=== PATIENT | female | born 1990 | race Caucasian/White ===

== ENCOUNTER 2021-01-31 19:30 | Inpatient (IN) | payer OTHER ==
[2021-01-31 21:42] LABS: BASO % 0.2 % (0-2.0); EOS % 0.8 % (0-4.5); HEMATOCRIT 36.2 % (32.4-45.2); HEMOGLOBIN 12.7 GM/dL (10.7-15.3); LYMPH % 14.8 % (8-40); MCH 31.9 pg (25.7-33.7); MCHC 35.1 g/dl (32.0-36.0); MEAN CELL VOLUME 90.9 fl (80-96); MONO % 6.7 % (3.8-10.2); NEUT % 77.5 % (42.8-82.8); PLATELET COUNT 199 10^3/uL (134-434); RBC 3.98 M/mm3 (3.60-5.2); RDW 13.9 % (11.6-15.6); WHITE BLOOD COUNT 15.6 K/mm3 (4.0-10.0)
[2021-01-31 21:50] VITALS: BMI 29.9
[2021-01-31 21:50] LABS: INR 0.96 (0.83-1.09); PROTHROMBIN TIME (PATIENT) 11.6 SEC (9.7-13.0)
[2021-01-31 21:53] LABS: ACTIVATED PTT 27.1 SECONDS (25.2-36.5)
[2021-01-31] MEDS ORDERED: DEXTROSE 5%-LACTATED RINGERS 1,000 ML IV SCH ×2 (22:00→22:15)
[2021-01-31] MEDS ORDERED: DINOPROSTONE 10 MG VAGINAL SUPPOSITORY VG ONE (22:01)
[2021-01-31] MEDS ORDERED: BUTORPHANOL TARTRATE 1 MG/ML VIAL IVPB ONE (22:01)
[2021-01-31] MEDS ORDERED: PROMETHAZINE HCL 25 MG/1 ML VIAL IVPUSH ONE (22:01)
[2021-01-31 22:05] LABS: CALCIUM 8.8 mg/dL (8.5-10.1)
[2021-01-31 22:06] LABS: BLOOD UREA NITROGEN 7.2 mg/dL (7-18)
[2021-01-31 22:09] LABS: CREATININE 0.6 mg/dL (0.55-1.3)
[2021-01-31] MEDS ORDERED: OXYTOCIN 30 UNITS in 0.9% NS 30 UNIT/500 ML INFUS.BAG IVPB SCH (22:15)
[2021-01-31] MEDS ORDERED: OXYTOCIN 30 UNITS in 0.9% NS 30 UNIT/500 ML INFUS.BAG IVPB ONE (22:25)
[2021-01-31 23:03] LABS: HIV INTERPRETATION NEGATIVE (NEGATIVE)
[2021-01-31] MEDS ORDERED: PROMETHAZINE HCL 25 MG/1 ML VIAL ONE (23:41)
[2021-01-31] MEDS ORDERED: BUTORPHANOL TARTRATE 2 MG/ML VIAL ONE (23:41)
[2021-02-01] MEDS ORDERED: PCA PUMP NR ONE ×2 (12:13→17:35)
[2021-02-01] MEDS ORDERED: FENTANYL/BUPIVACAINE/NS/PF - PCEA - 50 ML DISP.SYRIN EP ONE ×2 (12:13→17:36)
[2021-02-01] MEDS: FENTANYL/BUPIVACAINE/NS/PF - PCEA - 50 ML DISP.SYRIN EP SCH ×2 (13:00→17:45)
[2021-02-01] MEDS ORDERED: NALOXONE HCL 0.4 MG/ML VIAL IVPUSH PRN (13:51)
[2021-02-01] MEDS ORDERED: OXYTOCIN 20 UNITS in 0.9% NS 20 UNIT/1,000 ML INFUS.BAG IV ONE (20:54)
[2021-02-01] MEDS ORDERED: LIDOCAINE HCL 1% PRESERVATIVE FREE - 30ML VIAL ONE (20:55)
[2021-02-01] MEDS: OXYTOCIN 20 UNITS in 0.9% NS 20 UNIT/1,000 ML INFUS.BAG IV SCH (22:50)
[2021-02-02] MEDS ORDERED: OXYTOCIN 20 UNITS in 0.9% NS 20 UNIT/1,000 ML INFUS.BAG IV ONE (00:10)
[2021-02-02] MEDS ORDERED: PCA PUMP NR ONE (00:10)
[2021-02-02] MEDS ORDERED: BENZOCAINE 20% 57 GM BOTTLE TP PRN (00:21)
[2021-02-02] MEDS ORDERED: BISACODYL 10 MG SUPP.RECT RC PRN (00:21)
[2021-02-02] MEDS ORDERED: METHYLERGONOVINE MALEATE 0.2 MG/1 ML AMP IM PRN (00:21)
[2021-02-02] MEDS ORDERED: BENZOCAINE 28 GM HEMORRHOIDAL OINTMENT TP PRN (00:21)
[2021-02-02] MEDS ORDERED: WITCH HAZEL 50% (TUCKS) 40 PAD/JAR PAD TP PRN (00:21)
[2021-02-02] MEDS: OXYTOCIN 20 UNITS in 0.9% NS 20 UNIT/1,000 ML INFUS.BAG IV SCH (00:30)
[2021-02-02 04:43] LABS: CORD BASE EXCESS -5.9 mmol/L (0-2); CORD HCO3 21.2 mmHg (20-29); CORD PCO2 46.6 mmHg (30-78); CORD pH 7.275 (7.14-7.44)
[2021-02-02] MEDS: PRENATAL VITAMINS W/ FOLIC ACID TABLET (FP) PO SCH (09:07)
[2021-02-02] MEDS: ACETAMINOPHEN 325 MG TABLET (FP) PO PRN ×2 (09:08→20:28)
[2021-02-02] MEDS: IBUPROFEN 600 MG TABLET (FP) PO PRN ×2 (09:09→20:33)
[2021-02-03] MEDS: IBUPROFEN 600 MG TABLET (FP) PO PRN (08:37)
[2021-02-03] MEDS: ACETAMINOPHEN 325 MG TABLET (FP) PO PRN (08:38)
[2021-02-03 09:22] LABS: BASO % 0.3 % (0-2.0); EOS % 1.3 % (0-4.5); HEMATOCRIT 29.6 % (32.4-45.2); HEMOGLOBIN 10.3 GM/dL (10.7-15.3); LYMPH % 16.6 % (8-40); MCH 32.4 pg (25.7-33.7); MCHC 34.7 g/dl (32.0-36.0); MEAN CELL VOLUME 93.4 fl (80-96); MEAN PLT VOLUME 9.5 fl (7.5-11.1); MONO % 3.7 % (3.8-10.2); NEUT % 78.1 % (42.8-82.8); PLATELET COUNT 175 10^3/uL (134-434); RBC 3.17 M/mm3 (3.60-5.2); RDW 14.3 % (11.6-15.6); WHITE BLOOD COUNT 15.7 K/mm3 (4.0-10.0)
[2021-02-03] MEDS: PRENATAL VITAMINS W/ FOLIC ACID TABLET (FP) PO SCH (09:25)
[2021-02-03 10:37] VITALS: BP 99/66; PULSE 79; TEMP 98.3
[2021-02-03] MEDS ORDERED: SENNOSIDES/DOCUSATE COMBO (SENNA PLUS) TABLET (UD) PO PRN (22:00)
== END 2021-02-03 14:45 | disposition home or self-care (01) | DRG 807 ==
LOC: JLDR 19:30 → J3W 02-02 02:36
PROVIDERS: ADMIT Obstetrics & Gynecology; ATTEND Obstetrics & Gynecology
PROC: 10E0XZZ Delivery of Products of Conception, External Approach (ICD-10-PCS; principal; 2021-02-01)
PROC: 0KQM0ZZ Repair Perineum Muscle, Open Approach (ICD-10-PCS; 2021-02-01)
PROC: 0W8NXZZ Division of Female Perineum, External Approach (ICD-10-PCS; 2021-02-01)
DX: O70.1 Second degree perineal laceration during delivery (principal); Z37.0 Single live birth; Z3A.38 38 weeks gestation of pregnancy
CPT/HCPCS: 36415; 36600; 59409; 80048; 82803; 85025; 85610; 85730; 86780; 86850; 86900; 86901; 87389; 88307-TC; C9803; U0003; U0005

== ENCOUNTER 2023-07-24 07:00 | Inpatient (IN) | payer OTHER ==
[2023-07-24] MEDS ORDERED: ELECTROLYTE-148 SOLN 1,000 ML IV SCH (08:00)
[2023-07-24 08:29] VITALS: BMI 33.6
[2023-07-24 08:29] LABS: INR 1.03 (0.83-1.09)
[2023-07-24 08:34] LABS: ACTIVATED PTT 26.6 SECONDS (25.2-36.5)
[2023-07-24 08:39] LABS: BASO % 0.3 % (0-2.0); EOS % 1.1 % (0-4.5); HEMATOCRIT 37.8 % (32.4-45.2); HEMOGLOBIN 12.8 GM/dL (10.7-15.3); LYMPH % 14.8 % (8-40); MCH 30.8 pg (25.7-33.7); MCHC 33.8 g/dl (32.0-36.0); MEAN CELL VOLUME 91.1 fl (80-96); MEAN PLT VOLUME 9.1 fl (7.5-11.1); MONO % 6.7 % (3.8-10.2); NEUT % 77.1 % (42.8-82.8); PLATELET COUNT 196 10^3/uL (134-434); RBC 4.15 M/mm3 (3.60-5.2); RDW 14.7 % (11.6-15.6)
[2023-07-24 08:48] LABS: POTASSIUM 4.3 mmol/L (3.5-5.1)
[2023-07-24 08:50] LABS: CALCIUM 9.2 mg/dL (8.5-10.1)
[2023-07-24 08:51] LABS: BLOOD UREA NITROGEN 10.3 mg/dL (7-18)
[2023-07-24 08:54] LABS: CREATININE 0.5 mg/dL (0.55-1.3)
[2023-07-24] MEDS ORDERED: OXYTOCIN 30 UNITS in 0.9% NS 30 UNIT/500 ML INFUS.BAG IVPB ONE (08:55)
[2023-07-24] MEDS ORDERED: PROMETHAZINE HCL 25 MG/1 ML VIAL IVPB ONE (09:12)
[2023-07-24] MEDS ORDERED: BUTORPHANOL TARTRATE 2 MG/ML VIAL IVPB ONE (09:12)
[2023-07-24] MEDS ORDERED: OXYTOCIN 30 UNITS in 0.9% NS 30 UNIT/500 ML INFUS.BAG IVPB SCH (09:30)
[2023-07-24] MEDS ORDERED: PROMETHAZINE HCL 25 MG/1 ML VIAL ONE (11:47)
[2023-07-24] MEDS ORDERED: BUTORPHANOL TARTRATE 2 MG/ML VIAL ONE (11:47)
[2023-07-24] MEDS ORDERED: FENTANYL/BUPIVACAINE/NS/PF - PCEA - 50 ML DISP.SYRIN EP ONE ×2 (14:42→17:06)
[2023-07-24] MEDS ORDERED: BUPIVACAINE HCL/PF 0.25% (2.5MG/ML) 10 ML VIAL ONE (14:45)
[2023-07-24] MEDS ORDERED: LIDO 2%/EPI 1:200000 PRESRVFRE (20 ML SDVIAL) ONE ×2 (14:45)
[2023-07-24] MEDS: ELECTROLYTE-148 SOLN 1,000 ML IV SCH ×2 (14:47→17:18)
[2023-07-24] MEDS: FENTANYL/BUPIVACAINE/NS/PF - PCEA - 50 ML DISP.SYRIN EP SCH ×2 (14:59→18:20)
[2023-07-24] MEDS ORDERED: NALOXONE HCL 0.4 MG/ML VIAL IVPUSH PRN (15:15)
[2023-07-24] MEDS ORDERED: LIDOCAINE HCL 1% PRESERVATIVE FREE - 30ML VIAL ONE (18:34)
[2023-07-24] MEDS ORDERED: OXYTOCIN 20 UNITS in 0.9% NS 20 UNIT/1,000 ML INFUS.BAG IV ONE (18:34)
[2023-07-24 21:54] LABS: CORD BASE EXCESS -2.8 mmol/L (0-2); CORD BASE EXCESS -3.4 mmol/L (0-2); CORD HCO3 22.9 mmHg (20-29); CORD PCO2 40.8 mmHg (30-78); CORD PCO2 42.7 mmHg (30-78); CORD pH 7.347 (7.14-7.44); CORD pH 7.349 (7.14-7.44)
[2023-07-24] MEDS ORDERED: BISACODYL 10 MG SUPP.RECT RC PRN (22:41)
[2023-07-24] MEDS ORDERED: METHYLERGONOVINE MALEATE 0.2 MG/1 ML AMP IM PRN (22:41)
[2023-07-24] MEDS ORDERED: BENZOCAINE 28 GM HEMORRHOIDAL OINTMENT TP PRN (22:41)
[2023-07-24] MEDS ORDERED: IBUPROFEN 600 MG TABLET (FP) PO PRN (22:41)
[2023-07-24] MEDS ORDERED: WITCH HAZEL 50% (TUCKS) 40 PAD/JAR PAD TP PRN (22:41)
[2023-07-24] MEDS ORDERED: BENZOCAINE 20% 57 GM BOTTLE TP PRN (22:41)
[2023-07-24] MEDS ORDERED: OXYTOCIN 20 UNITS in 0.9% NS 20 UNIT/1,000 ML INFUS.BAG IV SCH (22:45)
[2023-07-24] MEDS ORDERED: ACETAMINOPHEN 325 MG TABLET (FP) ONE (23:30)
[2023-07-24] MEDS: ACETAMINOPHEN 325 MG TABLET (FP) PO PRN (23:33)
[2023-07-25] MEDS: ACETAMINOPHEN 325 MG TABLET (FP) PO PRN ×3 (07:28→21:20)
[2023-07-25 08:32] LABS: BASO % 0.4 % (0-2.0); EOS % 0.4 % (0-4.5); HEMATOCRIT 32.9 % (32.4-45.2); HEMOGLOBIN 11.2 GM/dL (10.7-15.3); LYMPH % 13.3 % (8-40); MCH 31.1 pg (25.7-33.7); MCHC 34.1 g/dl (32.0-36.0); MEAN CELL VOLUME 91.3 fl (80-96); MEAN PLT VOLUME 9.2 fl (7.5-11.1); NEUT % 78.9 % (42.8-82.8); PLATELET COUNT 182 10^3/uL (134-434); RDW 14.7 % (11.6-15.6); WHITE BLOOD COUNT 17.9 K/mm3 (4.0-10.0)
[2023-07-25 19:06] VITALS: RESP 18
[2023-07-25] MEDS ORDERED: SENNOSIDES/DOCUSATE COMBO (SENNA PLUS) TABLET (UD) PO PRN (22:00)
[2023-07-26 09:27] VITALS: BP 108/65; PULSE 72; TEMP 97.9
[2023-07-26] MEDS: ACETAMINOPHEN 325 MG TABLET (FP) PO PRN (11:11)
[2023-07-26] MEDS: ELECTROLYTE-148 SOLN 1,000 ML IV SCH (13:16)
== END 2023-07-26 14:50 | disposition home or self-care (01) | DRG 807 ==
LOC: JLDR 07:00 → J3W 07-25 00:12
PROVIDERS: ADMIT Obstetrics & Gynecology; ATTEND Obstetrics & Gynecology
PROC: 10E0XZZ Delivery of Products of Conception, External Approach (ICD-10-PCS; principal; 2023-07-24)
PROC: 0HQ9XZZ Repair Perineum Skin, External Approach (ICD-10-PCS; 2023-07-24)
DX: O48.0 Post-term pregnancy (principal); Z37.0 Single live birth; Z3A.40 40 weeks gestation of pregnancy; O70.0 First degree perineal laceration during delivery
CPT/HCPCS: 36415; 36600; 80048; 82803; 85025; 85610; 85730; 86780; 86850; 86900; 86901